=== PATIENT | male | born 2000 | race Caucasian/White ===

== ENCOUNTER 2018-11-20 15:55 | Emergency (ER) | payer OTHER ==
--- NOTE | 2018-11-20 16:03 | ER Report ---
History and Physical Time Seen By MD: 16:03 HPI/ROS CHIEF COMPLAINT: Right knee injury HISTORY OF PRESENT ILLNESS: This is a 18-year-old male who presents to the emergency department for right knee injury. Patient states that he was skiing about 2 hours prior to arrival, the ski tip crossed, and then the patient developed severe pain to the right medial knee, skin tanner carded him down. Denies falling and hitting his head. No loss of consciousness. No numbness or tingling. Patient was placed in a splint and sent to the ER for further evaluation. No recent fevers or chills. REVIEW OF SYSTEMS: Respiratory: No cough, no dyspnea. Cardiovascular: No chest pain, no palpitations. Gastrointestinal: No vomiting, no abdominal pain. Musculoskeletal: As above. Allergies: Coded Allergies: No Known Drug Allergies (Unverified , 11/20/18) Home Meds Reported Medications Cetirizine Hcl (ZYRTEC) 10 Mg Capsule, 10 MG PO QDAY, CAPSULE 11/20/18 Escitalopram Oxalate (LEXAPRO) 20 Mg Tablet, 20 MG PO QDAY, TAB 11/20/18 Loratadine/Pseudoephedrine (CLARITIN-D 24 HOUR TABLET) 1 Each Tab.er.24h, 1 EACH PO 11/20/18 Past Medical/Surgical History The patient has a past medical and surgical history of umbilical hernia repair. Reviewed Nurses Notes: Yes Constitutional Vital Sign - Last 24 Hours 11/20/18 11/20/18 16:06 17:00 Temp 98.0 Pulse 94 80 Resp 16 16 B/P (MAP) 151/98 124/91 (102) Pulse Ox 92 95 O2 Delivery Room Air Room Air Physical Exam General Appearance: The patient is alert, has no immediate need for airway protection and no current signs of toxicity. Eyes: Pupils equal and round no injection. Respiratory: Chest is non tender, lungs are clear to auscultation. Cardiac: regular rate and rhythm. Gastrointestinal: Abdomen is soft and non tender, no masses, bowel sounds normal . Musculoskeletal: Neck: Neck is supple and non tender. Extremities able to lift the right leg off the gurney, very minimal pain with varus maneuver, significant increase in pain with foul this maneuver. Swelling noted to the medial knee, no deformities, no crepitus, cellulitis or erythema. Skin: No rashes or lesions. DIFFERENTIAL DIAGNOSIS: After history and physical exam differential diagnosis was considered for contusion, subluxation, patellar dislocation, viscus tear, anterior cruciate ligament, PCL injury, tibial plateau fracture. Medical Decision Making EKG/Imaging Imaging Location: [facility] - [place] Patient: Nemesio Gonzalez : 2000 Visit/Account:[id number] Date of Sevice: 11/20/2018 INDICATION: fall, pain. DATE: 11/20/2018 4:36 PM. TECHNIQUE: KNEE 4 VIEW RIGHT COMPARISON: None FINDINGS: Bony alignment is normal without fracture or dislocation. IMPRESSION: No acute osseous abnormality. Report Dictated By: Modesto Johnson MD at 11/20/2018 4:36 PM Report E-Signed By: Modesto Johnson MD at 11/20/2018 4:37 PM WSN:[email or web address] ED Course/Re-evaluation ED Course The patient was admitted to room. A history and physical were obtained. Differential diagnoses were considered. An x-ray of the right knee was negative for any acute osseous abnormalities. I did review the results with the patient. I did tell him I was concerned that this is a meniscus injury or ligamentous injury, patient expressed understanding. He was placed in a knee immobilizer and given crutches, he was instructed to follow-up with [facility] this week for reevaluation and possibly an MRI of the knee. Patient expressed understanding. Instructed to take ibuprofen or Tylenol as needed for pain, keep leg elevated. Patient was discharged home. He another questions or concerns at this time. Decision to Disposition Date: Nov 20, 2018 Decision to Disposition Time: 16:56 Depart Departure Latest Vital Signs Vital Signs Date Time Temp Pulse Resp B/P (MAP) Pulse Ox O2 Delivery O2 Flow Rate FiO2 11/20/18 17:00 80 16 124/91 (102) 95 Room Air 11/20/18 16:06 98.0 Impression: Primary Impression: Injury of right knee Condition: Improved Disposition: HOME OR SELF-CARE Referrals: ASHLYN HAN MD 5 Days [facility] Patient Instructions: Knee Sprain (ED) Additional Instructions: No concerning findings on Xray. I am however concerned that you have either a meniscus injury or ligamentous injury. Please call [facility] tomorrow for a follow up this week. Keep the brace on when up moving around. Keep the leg elevated, this will help with pain and swelling. Take 800mg Ibuprofen every 8 hours as needed for pain. For additional pain relief you can alternate with 500-1000mg of Tylenol every 8 hours. Drink plenty of water. Get plenty of rest. Use crutches when walking. Return to the ED for any other concerns or worsening symptoms. Problem Qualifiers Primary Impression: Injury of right knee Encounter type: initial encounter Qualified Codes: S89.91XA - Unspecified injury of right lower leg, initial encounter SILVA SANABRIA SOLID SURFACE FABRICATOR-BC Nov 20, 2018 16:03
[2018-11-20] MEDS ORDERED: LORA1TAB69 PO (16:14)
[2018-11-20] MEDS ORDERED: ESCI20TA38 PO (16:14)
[2018-11-20] MEDS ORDERED: CETI10CA8 PO (16:14)
--- NOTE | 2018-11-20 16:41 | RADIOLOGY IMAGING REPORT ---
FACILITY: [facility] PATIENT NAME: Nemesio Gonzalez : 2000 MR: [id number] V: [id number] EXAM DATE: ORDERING PHYSICIAN: SILVA SANABRIA TECHNOLOGIST: Location: [facility] - [place] Patient: Nemesio Gonzalez : 2000 Visit/Account:[id number] Date of Sevice: 11/20/2018 INDICATION: fall, pain. DATE: 11/20/2018 4:36 PM. TECHNIQUE: KNEE 4 VIEW RIGHT COMPARISON: None FINDINGS: Bony alignment is normal without fracture or dislocation. IMPRESSION: No acute osseous abnormality. Report Dictated By: Modesto Johnson MD at 11/20/2018 4:36 PM Report E-Signed By: Modesto Johnson MD at 11/20/2018 4:37 PM WSN:[email or web address]
[2018-11-20 17:00] VITALS: BP 124/91
[2018-11-20] MEDS ORDERED: IBUPROFEN 800 MG TAB PO ONE (17:00)
== END 2018-11-20 17:06 | disposition home or self-care (01) ==
LOC: ER 16:07
DX: M25.561 Pain in right knee (principal); S89.91XA Unspecified injury of right lower leg, initial encounter; Y93.23 Activity, snow (alpine) (downhill) skiing, snowboarding, sledding, tobogganing and snow tubing
CPT/HCPCS: 73564; 99283; L1830